=== PATIENT | male | born 2000 | race Caucasian/White ===

== ENCOUNTER 2023-10-12 19:47 | Emergency (ER) | payer BC, SELFPAY ==
--- NOTE | 2023-10-12 | ECG_ITS ---
Test Reason : CHECK FOR HB Blood Pressure : / mmHG Vent. Rate : 101 BPM Atrial Rate : 101 BPM P-R Int : 164 ms QRS Dur : 088 ms QT Int : 332 ms P-R-T Axes : 078 060 003 degrees QTc Int : 430 ms Sinus tachycardia Inferior ST-T changes-consider ischemia Abnormal ECG No previous ECGs available Referred By: Jyotsna Low Electronically Signed By:Guru Marquez
[2023-10-12 21:12] VITALS: BP 140/101; PULSE 93; RESP 18; TEMP 36.3; O2SAT 100; BMI 40.0
[2023-10-12 21:48] LABS: MANUAL DIFF FLAG NO
[2023-10-12 21:50] LABS: Basophils Absolute Auto 0.1 X10*3/uL (0.0-0.2); Basophils Percent Auto 0.8 % (0-2); Eosinophils Absolute Auto 0.1 X10*3/uL (0.0-0.4); Eosinophils Percent Auto 0.9 % (0-4); Hematocrit 42.9 % (42.0-52.0); Hemoglobin 14.6 g/dl (14.0-18.0); Imm Gran Abs Auto 0.02 X10*3/uL (0.00-0.03); Imm Gran Pct Auto 0.3 % (0.0-0.4); Lymphocytes Absolute Auto 2.2 X10*3/uL (1.2-4.9); Mean Corpuscular Hemoglobin 26.1 pg (27.0-33.0); Mean Corpuscular Volume 76.6 fL (80.0-98.0); Mean Platelet Volume 9.6 fL (9.4-12.4); Monocytes Absolute Auto 1.4 X10*3/uL (0.1-1.2); Monocytes Percent Auto 18.3 % (2-11); Neutrophils Absolute Auto 3.9 x10*3/uL (2.0-8.3); Neutrophils Percent Auto 50.7 % (45-73); Platelet Count 222 X10*3/uL (160-400); Red Cell Distribution Width 13.3 % (11.0-16.0); White Blood Count 7.7 X10*3/uL (4.8-10.8)
--- NOTE | 2023-10-12 23:29 | ED.GENADULT ---
HPI - General Adult General Chief complaint: General Medical Stated complaint: ?lyme disease Time Seen by Provider: 10/12/23 23:03 Source: patient, RN notes reviewed and old records reviewed Mode of arrival: ambulatory Limitations: no limitations History of Present Illness ED Provider: Mack SHOEMAKER narrative: 23-year-old male presents for evaluation of a rash on his right ankle/foot. He reports that about 2 week ago he pulled a tick out of his foot in the area where the rash now is He is unsure how long the tick was embedded in his skin. 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 He reports general fatigue The patient reports that he just noticed the rash today but has been having body aches for about a week Denies any respiratory complaints, denies any chest pain, palpitation Related Data Previous Rx's ?Medication ?Instructions ?Recorded doxycycline hyclate 100 mg tablet 100 mg PO BID #42 tabs 10/12/23 Allergies Allergy/AdvReac Type Severity Reaction Status Date / Time No Known Allergies Allergy Verified 10/12/23 21:18 Review of Systems Constitutional: Constitutional: Reports body ache(s), Reports chills, Reports fatigue, Reports fever(s), Denies headache(s) and Reports malaise ENT: Denies headache(s) and Denies sore throat Cardiovascular: Cardiovascular: Denies chest pain and Denies dyspnea Respiratory: Respiratory: Denies cough and Denies dyspnea Gastrointestinal: Gastrointestinal: Denies abdominal pain, Denies nausea and Denies vomiting Musculoskeletal: Musculoskeletal: Reports arthralgias, Denies joint swelling and Denies limited range of motion Integumentary/Breasts: Skin/Breast: Reports rash Neurologic: Denies headache(s) Psychiatric: Psychiatric: Denies anxiety Endocrine: Endocrine: Reports fatigue PMFSH Social History Social History Advance Directives: No Advance Directives Information Provided: Yes Do you have a plan to hurt others: No Plan Physical Exam ED Vital Signs: Vital Signs - 24 hr 10/12/23 21:12 10/12/23 23:30 10/12/23 23:53 Temperature 97.4 F 98.5 F 98.5 F Pulse Rate 93 93 93 Respiratory Rate 18 18 18 Blood Pressure 140/101 H 135/79 135/79 Pulse Oximetry 100 99 99 Oxygen Delivery Method Room Air Room Air Room Air BMI result Body Mass Index 40.0 Const General: healthy appearing, comfortable, no acute distress, alert and awake Nutritional Appearance: well nourished Orientation/consciousness: patient oriented x3 HENMT Head: Yes normocephalic and Yes atraumatic Eyes Eyelids: Yes eyelids normal Conjunctivae: conjunctivae normal Sclerae: sclerae normal Corneas: corneas normal Pupils: Equal, round and reactive pupils present EOM: EOMs intact bilaterally Neck Neck: Yes full ROM Resp Effort & Inspection: normal respiratory effort, able to speak in complete sentences, no audible wheezes and not labored Auscultation: clear to auscultation bilaterally Cardio Rate: regular rate Rhythm: regular rhythm Skin Other: Patient has a 5 cm area target shaped bull's-eye rash to the dorsal surface of the right foot and anterior ankle. General skin exam: elasticity normal Neuro General: patient oriented x3 Cranial nerves: Yes Equal, round and reactive pupils present and Yes Bilaterally intact EOM present Cognition (Neuro): normal cognition Extrem Other: Moving all extremities well without any obvious deformities Medications Administered Discontinued Medications Generic Name Dose Route Start Last Admin Trade Name Freq PRN Reason Stop Dose Admin Doxycycline Monohydrate 100 mg 10/12/23 23:28 10/12/23 23:52 Doxycycline Monohydrate 100 Mg Capsule PO 10/12/23 23:29 100 mg ONCE ONE Administration Medical Decision Making Medical Decision Making [facility] Narrative: 23-year-old male presents for evaluation of a target shaped rash, he reports pulling a tick off him 2 weeks ago. He has joint aches. The patient likely has Lyme disease, EKG shows no evidence of heart block or arrhythmia. Plan to treat with doxycycline b.i.d. x3 weeks for Lyme disease with arthritic symptoms Differential Diagnosis Differential Diagnoses: The differential diagnosis associated with the presentation includes Lyme disease Tick bite Cellulitis Sepsis less likely Lab Data 10/12/23 21:38 Labs: Lab Results 10/12/23 Range/Units 21:38 WBC 7.7 (4.8-10.8) X10*3/uL RBC 5.60 (4.60-5.80) X10*6/uL Hgb 14.6 (14.0-18.0) g/dl Hct 42.9 (42.0-52.0) % MCV 76.6 L (80.0-98.0) fL MCH 26.1 L (27.0-33.0) pg MCHC 34.0 (31.0-36.0) g/dl RDW 13.3 (11.0-16.0) % Plt Count 222 (160-400) X10*3/uL MPV 9.6 (9.4-12.4) fL Immature Gran % (Auto) 0.3 (0.0-0.4) % Neut % (Auto) 50.7 (45-73) % Lymph % (Auto) 29.0 (20-40) % [place] % (Auto) 18.3 H (2-11) % Eos % (Auto) 0.9 (0-4) % Baso % (Auto) 0.8 (0-2) % Lymph # (Auto) 2.2 (1.2-4.9) X10*3/uL [place] # (Auto) 1.4 H (0.1-1.2) X10*3/uL Eos # (Auto) 0.1 (0.0-0.4) X10*3/uL Baso # (Auto) 0.1 (0.0-0.2) X10*3/uL Abs Immat Gran (auto) 0.02 (0.00-0.03) X10*3/uL Absolute Neuts (auto) 3.9 (2.0-8.3) x10*3/uL Absolute Nucleated RBC 0.000 (0.0-0.012) X10*3/uL Nucleated RBC % (auto) 0.0 (0.0-0.2) /100WBC Discharge Plan Discharge Clinical Impression: Tick bite Patient Disposition: Home, Self-Care Instructions: Lyme Disease (ED), Tick Bite (ED) Additional Instructions: Your rash is most consistent with Lyme disease. Take doxycycline twice daily for 3 weeks This may make you more susceptible to sun [place] while taking it. I recommend wearing sunscreen and a hat when you are out in the sun Prescriptions: New doxycycline hyclate 100 mg tablet 100 mg PO BID Qty: 42 0RF Interventions: ED Discharge Assessment Last Done: 10/12/23 23:53 Discharge Date/Time: 10/12/23 23:56 Print Language: Slovak
[2023-10-12 23:30] VITALS: BP 135/79; PULSE 93; RESP 18; TEMP 36.9; O2SAT 99
[2023-10-12] MEDS: Doxycycline Monohydrate 100 MG CAPSULE PO (23:52)
[2023-10-12 23:53] VITALS: BP 135/79; PULSE 93; RESP 18; TEMP 36.9; O2SAT 99
[2023-10-14 18:09] LABS: A. Phagocytphilium DNA,RT-PCR NOT DETECTED (NOT DETECTED); Babesia Microti DNA, RT-PCR NOT DETECTED (NOT DETECTED); Borrelia Miyamotoi,DNA RT-PCR NOT DETECTED (NOT DETECTED); E.Chaffeensis DNA RT-PCR NOT DETECTED (NOT DETECTED); Lyme(Borrelia ssp)DNA RT-PCR NOT DETECTED (NOT DETECTED)
== END 2023-10-12 23:56 | disposition home or self-care (01) ==
PROVIDERS: Student in an Organized Health Care Education/Training Program; Emergency Provider Internal Medicine; PCP Pediatrics
DX: R21 Rash and other nonspecific skin eruption (principal); R00.0 Tachycardia, unspecified; R50.9 Fever, unspecified; M79.10 Myalgia, unspecified site; Z79.899 Other long term (current) drug therapy
CPT/HCPCS: 36415; 85025; 87468; 87469; 87478; 87484; 87798; 93005; 99283; 99284

== ENCOUNTER → 2023-10-12 21:28 | Outpatient (BNV) | payer BC, SELFPAY | PROVIDERS: Emergency Provider Internal Medicine; PCP Pediatrics; Visit Provider Internal Medicine Cardiovascular Disease | DX: R00.0 Tachycardia, unspecified (principal); R94.31 Abnormal electrocardiogram [ECG] [EKG] | CPT/HCPCS: 93010 ==